=== PATIENT | male | born 1990 | race Caucasian/White ===

== ENCOUNTER → 2019-05-10 | Emergency (ER) | payer OTHER ==
[~2019-05-10] VITALS: Ht 170.2 cm; Wt 89.8 kg
[~2019-05-10] MED LIST: ZOFRAN4 MG PO; [UNRECOGNIZED DRUG - OTHER]; [UNRECOGNIZED DRUG - OTHER]
== END | disposition home or self-care (01) ==
LOC: ER 22:13 → EDBD 22:15 → ER 22:15
DX: K29.60 Other gastritis without bleeding (principal); R07.89 Other chest pain; R11.11 Vomiting without nausea